=== PATIENT | male | born 1960 | race Caucasian/White ===

== ENCOUNTER 2017-01-31 08:01 | Day surgery (SDC) | payer BC ==
[~2017-01-31] VITALS: Ht 175.3 cm; Wt 70.5 kg
[~2017-01-31 08:01] MED LIST: CIALIS2.5 MG PO; ZOLOFT25 MG PO
[2017-01-31 08:50] VITALS: BP 118/77
[2017-01-31 11:40] VITALS: BP 147/89
[2017-01-31 12:19] VITALS: BP 134/77
== END 2017-01-31 12:35 | disposition home or self-care (01) ==
LOC: SDC 08:01 → 2SOUTH 11:30 → SDC 11:31 → EDSTATUS 11:31 → SDC 11:35
DX: H43.391 Other vitreous opacities, right eye (principal); E78.5 Hyperlipidemia, unspecified; Z85.828 Personal history of other malignant neoplasm of skin; Z91.09 Other allergy status, other than to drugs and biological substances; Z82.49 Family history of ischemic heart disease and other diseases of the circulatory system
CPT/HCPCS: J0690; J2250

== ENCOUNTER 2017-02-28 07:04 | Day surgery (SDC) | payer BC ==
[~2017-02-28] VITALS: Ht 175.3 cm; Wt 71.2 kg
[2017-02-28 07:34] VITALS: BP 110/80
[2017-02-28 10:45] VITALS: BP 124/84
[2017-02-28 11:42] VITALS: BP 117/69
== END 2017-02-28 11:45 | disposition home or self-care (01) ==
LOC: SDC 07:04
PROC: 08B53ZZ Excision of Left Vitreous, Percutaneous Approach (ICD-10-PCS; principal; 2017-02-28)
DX: H43.392 Other vitreous opacities, left eye (principal); Z87.891 Personal history of nicotine dependence; Z91.09 Other allergy status, other than to drugs and biological substances
CPT/HCPCS: J0690; J2405; J3300